=== PATIENT | female | born 1990 | race Caucasian/White ===

== ENCOUNTER → 2021-06-29 | Outpatient (CLI) | payer OTHER ==
--- NOTE | 2021-06-29 09:26 | Diagnostic Imaging Report ---
PROCEDURE: US Non-ob pelvis comp/trans. INDICATION: Secondary amenorrhea, possible miscarriage. TECHNIQUE: Multiple real time chris scale sonographic images were obtained of the pelvis transabdominally and endovaginally. CORRELATION STUDY: None FINDINGS: UTERUS: 7.3 x 3.3 x 3.8 cm. ENDOMETRIUM: 6 mm. Posterior to the endometrium is a small, anechoic region measuring 0.5 x 0.5 x 0.5 cm. Nonspecific. Possibility that this represents a gestational sac not excluded. No heart tones present. Cervical nabothian cysts present. RIGHT OVARY: 3.4 x 1.9 x 3.1 cm LEFT OVARY: 3.7 x 2.0 x 2.8 cm There is presence of multiple cysts and/or follicles of both ovaries. Blood flow is demonstrated to both ovaries. No definitive abnormal adnexal mass. Small amount of pelvic fluid posterior cul-de-sac. IMPRESSION: 1. Small fluid collection projecting posterior to the endometrium. This is nonspecific. Possibility of a small gestational sac not excluded. However, no pole or evidence for heart tones present. Correlation with serial beta hCG and short-term follow-up pelvic ultrasound imaging recommended. 2. Multiple small cysts and/or follicles of both ovaries. This can be associated with underlying polycystic ovarian syndrome. Dictated by: Dictated on workstation # [id number]
== END ==
LOC: RAD 08:00
PROVIDERS: ATTEND Obstetrics & Gynecology
DX: N91.1 Secondary amenorrhea (principal)
CPT/HCPCS: 76830; 76856

== ENCOUNTER 2021-07-06 09:00 | Day surgery (SDC) | payer OTHER ==
[2021-07-06] VITALS (10 sets, daily range): BP systolic 94–125; BP diastolic 55–92
[~2021-07-06] VITALS: Ht 167.7 cm; Wt 112.7 kg
[2021-07-06] MEDS ORDERED: LACTATED RINGERS 1,000 ML IV PRN (09:15)
[2021-07-06] MEDS ORDERED: fentaNYL INJ 100 MCG/2 ML AMP ONE (10:00)
[2021-07-06] MEDS ORDERED: MIDAZOLAM 2 MG/2 ML (VERSED) VIAL ONE (10:00)
[2021-07-06] MEDS ORDERED: ONDANSETRON 4 MG/2 ML (SDV) Z0FRAN ONE ×2 (10:06→10:17)
[2021-07-06] MEDS ORDERED: SCOPOLAMINE 1.5 MG (TRANSDERM-SCOP) PATCH ONE (10:06)
--- NOTE | 2021-07-06 10:06 | Progress Note-Pre Operative ---
Pre-Operative Progress Note H&P Reviewed The H&P was reviewed, patient examined and no changes noted. Date Seen by Provider: Jul 06, 2021 Time Seen by Provider: 10:00 Date H&P Reviewed: Jul 06, 2021 Time H&P Reviewed: 10:00 Pre-Operative Diagnosis: Incomplete ABHINAV Law DO Jul 06, 2021 10:06
[2021-07-06] MEDS ORDERED: FAMOTIDINE 20MG/2ML IV (PEPCID) ONE (10:07)
[2021-07-06] MEDS ORDERED: IBUP-1773 PO (10:08)
[2021-07-06] MEDS ORDERED: KETOROLAC 30 MG/ML VIAL IVP ONE (10:15)
[2021-07-06] MEDS ORDERED: SCOPOLAMINE 1.5 MG (TRANSDERM-SCOP) PATCH TD ONE (10:15)
[2021-07-06] MEDS ORDERED: D5 LR IV SOLUTION 1,000 ML IV SCH (10:15)
[2021-07-06] MEDS ORDERED: ONDANSETRON 4 MG/2 ML (SDV) Z0FRAN IVP ONE (10:15)
[2021-07-06] MEDS ORDERED: FAMOTIDINE 20MG/2ML IV (PEPCID) IVP ONE (10:15)
[2021-07-06] MEDS ORDERED: ONDANSETRON 4 MG/2 ML (SDV) Z0FRAN IVP PRN ×2 (10:15→11:00)
[2021-07-06] MEDS ORDERED: LIDOCAINE PF 2% 5 ML (XYLOCAINE) VIAL ONE (10:17)
[2021-07-06] MEDS ORDERED: proPOfol 200 MG/20 ML (DIPRIVAN) VIAL IV ONE (10:17)
[2021-07-06] MEDS ORDERED: KETOROLAC 30 MG/ML VIAL ONE (10:35)
[2021-07-06] MEDS ORDERED: HYDROmorphone 2 MG/ML VIAL (DILAUDID) IV ONE (11:00)
[2021-07-06] MEDS ORDERED: HYDROcodone/APAP 5 MG/325 MG (LORTAB) TAB PO ONE (11:45)
--- NOTE | 2021-07-06 13:51 | Anesthesia-General Post-Op ---
General Patient Condition Mental Status/LOC: Same as Preop Cardiovascular: Satisfactory Nausea/Vomiting: Absent Respiratory: Satisfactory Pain: Controlled Complications: Absent Post Op Complications Complications None Follow Up Care/Instructions Patient Instructions None needed. Anesthesia/Patient Condition Patient Condition Patient is doing well, no complaints, stable vital signs, no apparent adverse anesthesia problems. No complications reported per nursing. D/C home per [facility] [place] Criteria: Yes ALMA ROSA RABAGO CRNA Jul 06, 2021 13:51
--- NOTE | 2021-07-06 18:00 | OPERATIVE REPORT ---
DATE OF SERVICE: PREOPERATIVE DIAGNOSES: A 30-year-old female with incomplete . POSTOPERATIVE DIAGNOSIS: A 30-year-old female with incomplete . PROCEDURE: Suction D and C. SURGEON: Lele Parker DO ANESTHESIA: LMA general. ESTIMATED BLOOD LOSS: Minimal. URINE OUTPUT: 50 mL clear at the end of the procedure. FLUIDS: 800 mL lactated Ringer's solution. FINDINGS: Grossly normal-appearing external female genitalia with a small to scant amount of endometrial products of conception and tissue collected. SPECIMEN SENT: Products of conception. INDICATIONS FOR PROCEDURE: This 30-year-old female is a patient who was thought to have miscarried approximately 1 month ago; however, beta hCG level plateau and its fall and hovered around 50 for about the last 2 weeks. Repeat ultrasound showed intrauterine collapsed gestational sac with thickened endometrial tissue noted around the suspicious for retained products of conception. I discussed with the patient proceeding with D and C. Risks of procedure were discussed with the patient in detail and after all her questions were answered, consent was obtained, the patient was taken to the operating room. OPERATIVE REPORT IN DETAIL: Once in the operating room, general anesthesia was found to be adequate. She was placed in the dorsal lithotomy position, prepped and draped in normal sterile fashion. Timeout was performed. Weighted speculum was inserted to the patient's vagina. Bladder was emptied using straight catheterization. Right angle retractor was used to visualize the cervix. It was grasped at 12 o'clock position using a long Allis clamp. I then gently sound the uterine cavity, was found to be 7 cm. I selected a #7 rigid Richland curette and after dilating the cervix to allow placement of this, I placed a curette into the endometrial cavity. I attached the Richland suction device and applied suction to 70 mmHg, at which point I methodically cleared the endometrial cavity of all products of conception, endometrial tissue and debris. This was done on several passes and a gentle sharp curettage was performed thereafter. There was no bleeding noted at the end of the procedure. The patient tolerated the procedure well. All instruments were removed from the patient's vagina. She was taken to recovery area in stable condition. Lap and sponge counts were correct at the end of the procedure. Instrument counts correct as well. Job ID: [id number] DocumentID: [id number] Dictated Date: 07/06/2021 10:58:01 [employer] Date: 07/06/2021 17:59:43 Dictated By: DO NATALI MORALES
== END 2021-07-06 13:00 | disposition home or self-care (01) ==
LOC: SDC 09:00
PROVIDERS: ATTEND Obstetrics & Gynecology
DX: O03.4 Incomplete spontaneous abortion without complication (principal); Z79.899 Other long term (current) drug therapy; Z79.890 Hormone replacement therapy; E66.9 Obesity, unspecified; Z87.891 Personal history of nicotine dependence; Z87.42 Personal history of other diseases of the female genital tract
CPT/HCPCS: 36415; 86850; 86900; 86901; 87081

== ENCOUNTER → 2022-11-08 | Outpatient (CLI) | payer OTHER ==
[~2022-11-08] MED LIST: IBUP-1773 PO
--- NOTE | 2022-11-09 08:04 | Diagnostic Imaging Report ---
INDICATION: Supervision of normal . Anatomy scan. TECHNIQUE: Multiple real-time grayscale images were obtained over the gravid uterus. COMPARISON: None FINDINGS: A single live intrauterine gestation is visualized in transverse presentation. heart tones measure 155 bpm. The placenta is posterior and not low lying. The SANDRA is normal measuring 12.0 cm. The cervix is closed and measures 7.1 cm in length. The stomach, bladder, three-vessel cord, cord insertion, ventricles and brain, and kidneys are visualized and have a normal sonographic appearance. The four-chamber heart and spine are not well visualized due to position. Views of the adnexa are unremarkable. Biometrical measurements are as follows: Biparietal 4.55 cm, age 19 weeks 6 days. Head circumference 17.94 cm, age 20 weeks 3 days. Abdominal circumference 14.50 cm, age 19 weeks 6 days. Femur length 3.63 cm, age 21 weeks 4 days. Sonographic estimate age: 20 weeks 3 days. Sonographic estimated date of delivery: 03/25/2023. Estimated Weight: 361 gm (+/- 53 gm). LMP percentile: 83%. heart rate: 155 beats per minute. number: 1 of 1. IMPRESSION: 1. Single live intrauterine gestation measuring 20 weeks 3 days with estimated due date of 03/25/2023. These are within range with the clinical dates. 2. The four-chamber heart and spine are not well seen due to position. Otherwise, the anatomy is visualized and is unremarkable. Recommend continued followup as indicated. Dictated by: Dictated on workstation # [id number]
== END ==
LOC: RAD 15:01
PROVIDERS: ATTEND Nurse Practitioner Women's Health
DX: Z34.02 Encounter for supervision of normal first pregnancy, second trimester (principal); Z3A.20 20 weeks gestation of pregnancy
CPT/HCPCS: 76805

== ENCOUNTER 2023-01-27 20:03 | Outpatient (CLI) | payer OTHER ==
[~2023-01-27] VITALS: Ht 167.7 cm; Wt 121.2 kg
[2023-01-27 20:23] LABS: BILIRUBIN,URINE NEGATIVE (NEGATIVE); CLARITY,URINE CLEAR; COLOR,URINE YELLOW; GLUCOSE, URINE (UA) NEGATIVE (NEGATIVE); KETONES,URINE NEGATIVE (NEGATIVE); LEUKOCYTE ESTERASE ,URINE TRACE (NEGATIVE); NITRITE,URINE NEGATIVE (NEGATIVE); PH,URINE 6.5 (5-9); PROTEIN,URINE TRACE (NEGATIVE)
[2023-01-27 20:31] VITALS: BP 132/69
[2023-01-27 20:36] LABS: BACTERIA,URINE MODERATE /HPF; SQUAMOUS EPITHELIAL CELL,UR >50 /HPF
[2023-01-27] MEDS ORDERED: ASPI-999 PO (20:55)
[2023-01-27] MEDS ORDERED: LEVO25CA4 PO (20:55)
[2023-01-27] MEDS ORDERED: MAGN250C PO (20:55)
[2023-01-27] MEDS ORDERED: PREN-142 PO (20:55)
[2023-01-27 21:24] LABS: BASOPHILS % (AUTO) 0 % (0-10); EOSINOPHILS # (AUTO) 0.1 10^3/uL (0.0-0.3); EOSINOPHILS % (AUTO) 1 % (0-10); HEMATOCRIT 30 % (35-52); HEMOGLOBIN 9.6 g/dL (11.5-16.0); LYMPHOCYTES % (AUTO) 26 % (12-44); MEAN CORPUSCULAR HEMOGLOBIN 28 pg (25-34); MEAN CORPUSCULAR HGB CONC 32 g/dL (32-36); MEAN CORPUSCULAR VOLUME 87 fL (80-99); MEAN PLATELET VOLUME 9.7 fL (9.0-12.2); MONOCYTES # (AUTO) 0.8 10^3/uL (0.0-1.0); MONOCYTES % (AUTO) 7 % (0-12); NEUTROPHILS # (AUTO) 7.5 10^3/uL (1.8-7.8); NEUTROPHILS % (AUTO) 66 % (42-75); PLATELET COUNT 272 10^3/uL (130-400); WHITE BLOOD COUNT 11.5 10^3/uL (4.3-11.0)
[2023-01-27 21:45] LABS: ALBUMIN 2.9 GM/DL (3.2-4.5)
[2023-01-27 21:47] LABS: CALCIUM 8.5 MG/DL (8.5-10.1)
[2023-01-27 21:48] LABS: GLUCOSE 94 MG/DL (70-105); TOTAL PROTEIN 5.9 GM/DL (6.4-8.2)
[2023-01-27 21:49] LABS: CARBON DIOXIDE 21 MMOL/L (21-32)
[2023-01-27 21:50] LABS: BILIRUBIN,TOTAL < 0.1 MG/DL (0.1-1.0)
[2023-01-27 21:51] LABS: ALKALINE PHOSPHATASE 60 U/L (40-136); CREATININE SERUM 0.74 MG/DL (0.60-1.30); GFR ESTIMATED 110
[2023-01-27 21:53] LABS: BUN/CREATININE RATIO 7
[2023-01-27 21:54] LABS: ALANINE AMINOTRANSFERASE 10 U/L (0-55)
[2023-01-27 22:05] LABS: CHLORIDE 109 MMOL/L (98-107); POTASSIUM 3.8 MMOL/L (3.6-5.0); SODIUM 138 MMOL/L (135-145)
--- NOTE | 2023-01-27 22:08 | OB Triage Report ---
Standard Progress Note Progress Notes/Assess & Plan Date Seen by a Provider: January 27, 2023 Time Seen by a Provider: 22:02 Expected Date of Delivery: Mar 29, 2023 Gestational Age in Weeks: 31 Gestational Age in Days: 2 LMP/REKHA Comment: IUP@ 31w2d Progress/Assessment & Plan This 32yo presents to L&D @31w2d with c/o vision changes that have started over the last wk She denies any other symptoms (BUENO, n/v, epigastric pain) She was concerned because her father had a retinal detachment last month. she denies LOF, VB or CTXs BP 132/69 Repeat 102/68 FHT 135 Reactive TOCOs occasional PIH labs reviewed nml A/P IUP @ 31w2d Vision changes PIH labs wnl DC to home Keep next appt. PIH precautions Diagnosis/Problems Diagnosis/Problems (1) 31 weeks gestation of Assessment & Plan: IUP @ 31w2d DC to home Keep next appt (2) Vision changes Assessment & Plan: BP stable PIH labs nml DC to home. f/u with her Ophthalmalogist SHUKRI CRUMP DO January 27, 2023 22:08
== END 2023-01-27 22:20 | disposition home or self-care (01) ==
LOC: LDRP 20:03 → WSo 20:03
PROVIDERS: ATTEND Obstetrics & Gynecology
DX: O26.893 Other specified pregnancy related conditions, third trimester (principal); H53.9 Unspecified visual disturbance; Z3A.31 31 weeks gestation of pregnancy
CPT/HCPCS: 36415; 80053; 81000; 82570; 84156; 85025; 87088; 99213

== ENCOUNTER 2023-04-01 19:01 | Inpatient (IN) | payer OTHER ==
[~2023-04-01] VITALS: Ht 167.7 cm; Wt 126.7 kg
[~2023-04-01 19:01] MED LIST changes: +ASPI-999 PO; +LEVO25CA4 PO; +MAGN250C PO; +PREN-142 PO
[2023-04-01 19:26] VITALS: BP 131/73
[2023-04-01] MEDS ORDERED: HYDROmorphone 2 MG/ML VIAL (DILAUDID) IV NR (19:30)
[2023-04-01] MEDS ORDERED: LIDOCAINE/EPI 2% 1:200,00 (XYLOCAINE) 20 ML VIAL INJ PRN (19:30)
[2023-04-01] MEDS ORDERED: NS IV 500 ML 500 ML IV ONE (19:30)
[2023-04-01] MEDS ORDERED: D5 LR 1,000 ML IV SOLN 1,000 ML IV ONE (19:31)
[2023-04-01] MEDS ORDERED: NS IV 500 ML 500 ML ONE (19:31)
[2023-04-01] MEDS: D5 LR 1,000 ML IV SOLN 1,000 ML IV SCH (19:46)
[2023-04-01 20:00] VITALS: BP 131/73
[2023-04-01 20:28] LABS: BASOPHILS % (AUTO) 0 % (0-10); EOSINOPHILS # (AUTO) 0.1 10^3/uL (0.0-0.3); EOSINOPHILS % (AUTO) 0 % (0-10); HEMATOCRIT 34 % (35-52); HEMOGLOBIN 11.2 g/dL (11.5-16.0); LYMPHOCYTES # (AUTO) 2.7 10^3/uL (1.0-4.0); LYMPHOCYTES % (AUTO) 23 % (12-44); MEAN CORPUSCULAR HEMOGLOBIN 28 pg (25-34); MEAN CORPUSCULAR HGB CONC 33 g/dL (32-36); MEAN CORPUSCULAR VOLUME 84 fL (80-99); MEAN PLATELET VOLUME 11.2 fL (9.0-12.2); MONOCYTES # (AUTO) 0.7 10^3/uL (0.0-1.0); MONOCYTES % (AUTO) 6 % (0-12); NEUTROPHILS # (AUTO) 8.4 10^3/uL (1.8-7.8); NEUTROPHILS % (AUTO) 70 % (42-75); PLATELET COUNT 292 10^3/uL (130-400)
[2023-04-01] MEDS ORDERED: diphenhydrAMINE 25 MG TABLET PO ONE ×2 (21:00→21:03)
[2023-04-01 21:01] LABS: BILIRUBIN,URINE NEGATIVE (NEGATIVE); CLARITY,URINE CLEAR; COLOR,URINE YELLOW; GLUCOSE, URINE (UA) NEGATIVE (NEGATIVE); KETONES,URINE NEGATIVE (NEGATIVE); LEUKOCYTE ESTERASE ,URINE NEGATIVE (NEGATIVE); NITRITE,URINE NEGATIVE (NEGATIVE); PROTEIN,URINE NEGATIVE (NEGATIVE)
[2023-04-01 21:14] VITALS: BP 106/70
[2023-04-01 21:20] LABS: BACTERIA,URINE MODERATE /HPF; WBC,URINE 0-2 /HPF
[2023-04-01] MEDS ORDERED: FAMOTIDINE INJ 20MG/2ML VIAL IVP ONE (21:45)
[2023-04-01] MEDS ORDERED: FAMOTIDINE INJ 20MG/2ML VIAL ONE (21:48)
--- NOTE | 2023-04-01 21:54 | History & Physical-OB ---
OB - Chief Complaint & HPI Date/Time Date of Admission: Date of Admission: Apr 01, 2023 at 19:01 Date seen by a Provider: Apr 01, 2023 Time Seen by a Provider: 21:40 Chief Complaint/History OB-Reason for Admission/Chief: Induction of Labor Hx : 2 Hx Para: 0 Expected Date of Delivery: Mar 24, 2023 Gestational Age in Weeks: 40 Gestational Age in Days: 3 Indication for induction: post dates Admission Nurse Assessment Rev: Yes History of Labs A pos Antibody neg RI RPR NR HBsAg NR HIV NR GC neg GBS neg Allergies and Home Medications Allergies Coded Allergies: No Known Drug Allergies (Unverified , 07/05/21) Patient Home Medication List Home Medication List Reviewed: Yes Aspirin (Aspirin) 81 Mg Tab.chew, 81 MG PO, (Reported) Entered as Reported by: FREEMAN BARON on 01/27/232054 Levothyroxine Sodium (Levothyroxine) 25 Mcg Capsule, 25 MCG PO, (Reported) Entered as Reported by: RFEEMAN BARON on 01/27/232054 Magnesium Citrate and Oxide (Magnesium) 250 Mg Capsule, 250 MG PO, (Reported) Entered as Reported by: FREEMAN BARON on 01/27/232054 Vit No.124/Iron/FA ( Vitamin Tablet) 27 Mg Iron-800 Mcg Tablet, 1 EACH PO, (Reported) Entered as Reported by: FREEMAN BARON on 01/27/232054 OB - History Hx of Present Care: Yes Ultrasounds: Normal mid trimester US Obstetrical Complications: None Medical Complications: None Patient Past Medical History nc Social History/Family History 2nd Hand Smoke Exposure: No Immunizations First/Initial COVID19 Vaccine: yes Second COVID19 Vaccination: yes OB - Admission Exam Physical Exam Vitals: Vital Signs 04/01/23 20:00 Temp 36.7 Pulse 90 Resp 20 Pulse Ox 96 O2 Delivery Room Air HEENT: NCAT Heart: Rhythm Normal Lungs: Clear Abdomen: Gravid Extremities: Normal Reflexes: Normal Cervical Dilatation: 2cm Effacement: 75% Station: -1 Membranes: Intact Heart Rate: 130's Accelerations: Accelerations Present Decelerations: No Decelerations Short Term Variability: Present Fdc Variability: Average (6-25) Contractions on Admission: 6-10 Minutes Apart Intensity: Mild Murguia Scoring Tool (Modified) Dilation (cm): 1-2cm (1) Effacement (%): 51-79% (2) Descent/Station: -1,0 (2) Cervix Consistency: Soft (2) Cervix Position: Anterior (2) Murguia Score: 8 Labs Laboratory Tests Test 04/01/23 19:45 04/01/23 20:50 Range/Units White Blood Count 12.0 H 4.3-11.0 10^3/uL Red Blood Count 4.02 3.80-5.11 10^6/uL Hemoglobin 11.2 L 11.5-16.0 g/dL Hematocrit 34 L 35-52 % Mean Corpuscular Volume 84 80-99 fL Mean Corpuscular Hemoglobin 28 25-34 pg Mean Corpuscular Hemoglobin Concent 33 32-36 g/dL Red Cell Distribution Width 14.7 H 10.0-14.5 % Platelet Count 292 130-400 10^3/uL Mean Platelet Volume 11.2 9.0-12.2 fL Immature Granulocyte % (Auto) 1 % Neutrophils (%) (Auto) 70 42-75 % Lymphocytes (%) (Auto) 23 12-44 % Monocytes (%) (Auto) 6 0-12 % Eosinophils (%) (Auto) 0 0-10 % Basophils (%) (Auto) 0 0-10 % Neutrophils # (Auto) 8.4 H 1.8-7.8 10^3/uL Lymphocytes # (Auto) 2.7 1.0-4.0 10^3/uL Monocytes # (Auto) 0.7 0.0-1.0 10^3/uL Eosinophils # (Auto) 0.1 0.0-0.3 10^3/uL Basophils # (Auto) 0.0 0.0-0.1 10^3/uL Immature Granulocyte # (Auto) 0.1 0.0-0.1 10^3/uL Syphilis Total Antibody Negative Negative Urine Color YELLOW Urine Clarity CLEAR Urine pH 6.0 5-9 Urine Specific [place] 1.020 1.016-1.022 Urine Protein NEGATIVE NEGATIVE Urine Glucose (UA) NEGATIVE NEGATIVE Urine Ketones NEGATIVE NEGATIVE Urine Nitrite NEGATIVE NEGATIVE Urine Bilirubin NEGATIVE NEGATIVE Urine Urobilinogen 0.2 < = 1.0 MG/DL Urine Leukocyte Esterase NEGATIVE NEGATIVE Urine RBC (Auto) TRACE-I H NEGATIVE Urine RBC 2-5 H /HPF Urine WBC 0-2 /HPF Urine Squamous Epithelial Cells 5-10 /HPF Urine Crystals NONE /LPF Urine Bacteria MODERATE H /HPF Urine Casts NONE /LPF Urine Mucus SMALL H /LPF Urine Culture Indicated NO OB - Assessment/Plan/Diagnosis Assessment Assessment: induction of labor Admission Dx 32 y o @ 40 weeks IOL- postdates GBS neg Admission Status: Inpatient Order (span 2 midnights) Reason for Inpatient Admission: IOL at 40 weeks Plan Plan: Induction Induction Method: per Misoprostol Protocol ABHINAV HERNANDES DO Apr 01, 2023 21:54
[2023-04-02] VITALS (81 sets, daily range): BP systolic 70–159; BP diastolic 38–96
[2023-04-02] MEDS: D5 LR 1,000 ML IV SOLN 1,000 ML IV SCH ×2 (02:53→17:30)
[2023-04-02] MEDS ORDERED: OXYTOCIN PRE-MIX DRIP 500 ML IV ONE ×3 (07:59→21:15)
[2023-04-02] MEDS ORDERED: OXYTOCIN PRE-MIX DRIP 500 ML IV SCH (08:00)
[2023-04-02] MEDS: LACTATED RINGERS 1,000 ML IV SCH ×2 (08:14→19:28)
[2023-04-02] MEDS ORDERED: fentaNYL 2 mcg/ml BUPIVA 0.125 100 ML ONE (08:48)
[2023-04-02] MEDS ORDERED: fentaNYL INJECTION 100 MCG/2 ML VIAL ONE ×2 (08:57→20:03)
[2023-04-02] MEDS ORDERED: LACTATED RINGERS 1,000 ML IV ONE (09:30)
[2023-04-02] MEDS: ONDANSETRON 4 MG/2 ML (SDV) Z0FRAN IV PRN ×2 (09:32→13:05)
[2023-04-02] MEDS ORDERED: ONDANSETRON 4 MG/2 ML (SDV) Z0FRAN ONE ×2 (09:32→21:15)
[2023-04-02] MEDS ORDERED: diphenhydrAMINE INJ 50 MG/ML VIAL IV PRN (10:00)
[2023-04-02] MEDS ORDERED: NALOXONE 0.4 MG/ML 1 ML (NARCAN) VIAL IV PRN ×3 (10:00→20:45)
[2023-04-02] MEDS ORDERED: METOCLOPRAMIDE INJ 10 MG/2 ML (REGLAN) IV PRN (10:00)
[2023-04-02] MEDS ORDERED: fentaNYL 2 mcg/ml BUPIVA 0.125 100 ML EPI SCH (10:00)
[2023-04-02] MEDS ORDERED: CITRIC ACID/SODIUM CITRATE ORAL SOLN 30 ML PO ONE (19:00)
[2023-04-02] MEDS ORDERED: METOCLOPRAMIDE INJ 10 MG/2 ML (REGLAN) IV ONE (19:00)
[2023-04-02] MEDS ORDERED: FAMOTIDINE INJ 20MG/2ML VIAL IV ONE (19:00)
[2023-04-02] MEDS ORDERED: ceFAZolin INJECTION 2,000 MG in NS (IVPB) 50 ML 50 ML IV ONE (19:00)
[2023-04-02] MEDS ORDERED: LACTATED RINGERS 1,000 ML IV PRN (19:00)
[2023-04-02] MEDS ORDERED: KETOROLAC 30 MG/ML VIAL ONE (20:12)
[2023-04-02] MEDS ORDERED: BUPIVACAINE 0.5% 30 ML VIAL ONE (20:31)
[2023-04-02] MEDS ORDERED: LIDOCAINE PF 2% 5 ML (XYLOCAINE) VIAL ONE (20:31)
[2023-04-02] MEDS ORDERED: PHENYLEPHRINE 100 MCG/ML 10 ML (ANESTHESIA) SYR ONE (20:32)
--- NOTE | 2023-04-02 20:35 | Progress Note ---
Standard Progress Note Progress Notes/Assess & Plan Date Seen by a Provider: Apr 02, 2023 Time Seen by a Provider: 20:15 Progress/Assessment & Plan Patient admitted for IOL due to post dates, misoprostol used overnight followed by AROM and pitocin augmentation. FSE placed. Recurrent variable decels occurred with is little to no progression she made it to 4 cm and stayed there despite augmentation to 16 mu pitocin at which point decels began and pitocin stopped. Discussed with patient proceeding with PCS risk reviewed, all questions answered. ABHINAV HERNANDES DO Apr 02, 2023 20:35
[2023-04-02] MEDS ORDERED: KETAMINE 50 MG/5 ML SYRINGE ONE (20:37)
[2023-04-02] MEDS ORDERED: Tetanus/Diphtheria/Pertussis (Acell) ADULT Vaccine 0.5 ML IM SCH (20:45)
[2023-04-02] MEDS ORDERED: ONDANSETRON 4 MG/2 ML (SDV) Z0FRAN IVP PRN (20:45)
[2023-04-02] MEDS ORDERED: MEASLES,MUMPS,RUBELLA 1 EA INJ SC SCH (20:45)
[2023-04-02] MEDS: KETOROLAC 30 MG/ML VIAL IV SCH (21:00)
[2023-04-02] MEDS: OXYTOCIN PRE-MIX DRIP 500 ML IV SCH (21:49)
[2023-04-02] MEDS: CATHETER FLUSH 10 ML SYR IV SCH (22:00)
[2023-04-02] MEDS: HYDROcodone/ACETAMINOPHEN 5 MG/325 MG TABLET PO PRN (23:52)
--- NOTE | 2023-04-03 00:03 | OPERATIVE REPORT ---
PREOPERATIVE DIAGNOSES: 1. A 32-year-old G2, P0 at 40 weeks and 2 days gestation. 2. intolerance of labor. 3. Failure to progress. POSTOPERATIVE DIAGNOSES: 1. A 32-year-old G2, P0 at 40 weeks and 2 days gestation. 2. intolerance of labor. 3. Failure to progress. PROCEDURE: Primary low transverse section. SURGEON: Lele Hernandes DO. ANESTHESIA: Epidural, which was bolused. ESTIMATED BLOOD LOSS: 500 mL URINE OUTPUT: 50 mL, clear at the end of procedure. FLUIDS: 1500 mL lactated Ringer's solution. FINDINGS: A live male weighing 8 pounds 3 ounces, Apgars of 8 and 9. Grossly normal appearing uterus, bilateral fallopian tubes and ovaries. SPECIMEN SENT: Placenta. INDICATIONS FOR PROCEDURE: This 32-year-old female is the patient who had sought care in my office. It was uncomplicated with the exception for postdates and obesity. The patient was induced after 40 weeks. She was given Cytotec overnight. You can see my preoperative note for complete details pertaining to the patient's labor progress in detail. Due to indications indicated in my preoperative note, we discussed proceeding with . Risks of procedure discussed with the patient in detail including risk of bleeding, infection, damage to surrounding structures including but not limited to bowel, bladder, ureter, kidneys, possible need for operation, postoperative complications that may occur, recovery timeframe, risk from anesthesia and even . After everything was discussed with the patient in detail and all of his questions were answered with the family present, consent was obtained. The patient was taken to the operating room. OPERATIVE REPORT IN DETAIL: Once in the operating room, epidural analgesia was bolused and found to be adequate, she was placed in the supine position with leftward tilt, prepped and draped in normal sterile fashion. Timeout was performed. Anesthesia was tested. I then made a Pfannenstiel skin incision with a knife and carried underlying fascia using Bovie cautery. The fascial incision extended laterally using Bovie cautery. The superior aspect of fascial incision was then grasped with Irina clamps, tented up and dissected off the underlying rectus muscles. The inferior aspect of the fascial incision was then grasped with Irina clamps, tented up and dissected off the underlying rectus muscles. Rectus muscles were dissected down the midline sharply, which exposed the peritoneum, which entered bluntly using blunt traction. Regino ring retractor was placed in the peritoneal incision, which offers excellent lateral sidewall retraction. I identified the lower uterine segment, found to be thinned out. I did make the low transverse incision to the vesicouterine peritoneum and bluntly dissected off the lower uterine segment, creating a bladder flap and then proceeded with my myotomy until membranes were visualized, at which point, I extended the uterine incision laterally and superiorly using bandage scissors. Amniotomy was noted in the process of doing this. It is still clear. The was found in vertex presentation. With gentle fundal pressure, the 's head was elevated up the incision where it was delivered through the incision, the nares and oropharynx were bulb suctioned. Anterior and posterior shoulders were delivered. The was brought to the operative field where cord was doubly clamped and cut and the infant was handed off to waiting nurses in attendance. Cord blood was collected. Three-vessel cord intact placenta was delivered spontaneously thereafter. IV Pitocin is initiated to facilitate uterine contraction. Uterine fundus confirmed with bimanual massage. The uterus was then exteriorized and cleared of all endometrial clots and debris. I then proceeded with closing the uterine incision using 0 Vicryl suture in a running locked fashion. Second layer of imbricating 0 Monocryl was placed. Excellent hemostasis was noted after doing this. I then placed the uterus back in the pelvis and copiously irrigated the pelvis using normal saline. Once again, there was no active bleeding noted from any of my dissection planes. I placed Interceed antiadhesive over my low transverse incision. I removed the Regino ring retractor and then proceeded with closing the peritoneum using 3-0 Vicryl suture in a running fashion. Rectus muscles were reapproximated using 3-0 Vicryl suture in interrupted fashion. The fascia was reapproximated using 0 Vicryl suture in a running fashion. Subcutaneous tissue was reapproximated using 3-0 plain interrupted subcutaneous stitch and skin reapproximated with 4-0 Monocryl running subcuticular. Dermabond was applied to incision, sterile dressing with adhesive white tape. The patient tolerated the procedure well and sent to recovery area in stable condition. Lap and sponge counts were correct at the end of the procedure. Instrument counts correct as well. Two grams of Ancef given preoperatively for infection prophylaxis. Job ID: [id number] DocumentID: [id number] Dictated Date: 04/02/2023 21:15:10 Weaving Inspector Date: 04/03/2023 00:01:00 Dictated By: LELE HERNANDES DO
[2023-04-03] MEDS: HYDROcodone/ACETAMINOPHEN 5 MG/325 MG TABLET PO PRN ×4 (00:27→21:14)
[2023-04-03] MEDS: OXYTOCIN PRE-MIX DRIP 500 ML IV SCH (01:26)
[2023-04-03] MEDS: DOCUSATE SODIUM 100 MG CAPSULE PO SCH ×3 (02:07→21:14)
[2023-04-03] MEDS: KETOROLAC 30 MG/ML VIAL IV SCH ×3 (02:48→15:23)
[2023-04-03 04:15] VITALS: BP 118/67
[2023-04-03] MEDS: CATHETER FLUSH 10 ML SYR IV SCH ×2 (06:00→09:12)
[2023-04-03 06:11] LABS: BASOPHILS # (AUTO) 0.1 10^3/uL (0.0-0.1); BASOPHILS % (AUTO) 0 % (0-10); EOSINOPHILS % (AUTO) 0 % (0-10); HEMATOCRIT 29 % (35-52); HEMOGLOBIN 9.3 g/dL (11.5-16.0); LYMPHOCYTES # (AUTO) 2.2 10^3/uL (1.0-4.0); LYMPHOCYTES % (AUTO) 12 % (12-44); MEAN CORPUSCULAR HEMOGLOBIN 27 pg (25-34); MEAN CORPUSCULAR HGB CONC 32 g/dL (32-36); MEAN CORPUSCULAR VOLUME 84 fL (80-99); MEAN PLATELET VOLUME 10.3 fL (9.0-12.2); MONOCYTES # (AUTO) 1.4 10^3/uL (0.0-1.0); MONOCYTES % (AUTO) 8 % (0-12); NEUTROPHILS # (AUTO) 14.5 10^3/uL (1.8-7.8); NEUTROPHILS % (AUTO) 79 % (42-75); PLATELET COUNT 221 10^3/uL (130-400); WHITE BLOOD COUNT 18.2 10^3/uL (4.3-11.0)
[2023-04-03 06:28] LABS: LYMPHOCYTES % (MANUAL) 15 %; MONOCYTES % (MANUAL) 5 %; NEUTROPHILS % (MANUAL) 80 %
--- NOTE | 2023-04-03 07:32 | Postpartum Progress Note ---
Note Note Day # 1 Subjective: Patient is without complaints. Ambulating, voiding. Tolerating a regular diet without nausea or vomiting. Normal lochia. Pain is well controlled with oral pain medications. [] Objective: Physical Exam: General - Alert and oriented, no apparent distress Abdomen - Soft, appropriately tender to palpation, non-distended, fundus firm at umbilicus Extremities - no edema, negative Pippa's bilaterally Incision- c/d/i Assessment: POD 1 PLTCS Acute blood loss anemia Plan: Routine care. Encourage breast feeding. Encourage ambulation. Ferrous sulfate supplementation. Plan for discharge tomorrow Vitals - Labs Vital Signs - I&O Vital Signs Date Time Temp Pulse Resp B/P (MAP) Pulse Ox O2 Delivery O2 Flow Rate FiO2 04/03/23 05:25 Room Air 04/03/23 04:15 36.4 83 18 118/67 (84) 97 Room Air 04/02/23 23:50 36.8 77 16 108/67 (81) 98 Room Air 04/02/23 22:48 36.2 79 16 111/73 (86) 98 Room Air 04/02/23 22:18 36.0 12 106/63 (77) 98 Room Air 04/02/23 22:18 Room Air 04/02/23 22:03 35.8 12 101/70 (80) 99 Room Air 04/02/23 22:03 Room Air 04/02/23 21:48 Room Air 04/02/23 21:48 35.7 12 121/66 (84) 99 Room Air 04/02/23 21:33 Room Air 04/02/23 21:33 36.2 14 137/96 (110) 99 Room Air 04/02/23 21:18 Room Air 04/02/23 21:18 36.8 17 143/54 (83) 100 Room Air 04/02/23 20:22 90 18 125/66 (85) Non Rebreather 04/02/23 20:16 77 18 133/70 (91) 94 Non Rebreather 04/02/23 20:13 90 18 109/57 (74) 100 Room Air 04/02/23 20:12 101 18 73/38 (50) 100 Room Air 04/02/23 20:11 101 18 92/55 (67) 100 Room Air 04/02/23 20:10 101 18 97/53 (68) 100 Room Air 04/02/23 20:08 86 18 129/70 (89) 100 Room Air 04/02/23 19:55 82 18 144/75 (98) 100 Room Air 04/02/23 19:40 84 18 150/72 (98) 97 Room Air 04/02/23 19:25 36.4 78 18 141/89 (106) 99 Room Air 04/02/23 19:05 75 18 124/60 (81) Room Air 04/02/23 19:00 80 18 149/86 (107) Room Air 04/02/23 18:21 79 99 Room Air 04/02/23 18:08 80 141/89 (106) 04/02/23 18:06 80 100 Room Air 04/02/23 17:54 81 142/87 (105) 04/02/23 17:52 87 100 Room Air 04/02/23 17:37 87 135/85 (102) 100 Room Air 04/02/23 17:29 36.1 85 18 141/94 (110) 91 Room Air 04/02/23 17:25 70 89/55 (66) 04/02/23 17:22 68 99 Room Air 04/02/23 17:06 64 100 Room Air 04/02/23 16:54 66 104/53 (70) 04/02/23 16:47 85 100 Room Air 04/02/23 16:42 65 100 Room Air 04/02/23 16:38 82 121/72 (88) 99 Room Air 04/02/23 16:32 71 88 Room Air 04/02/23 16:31 83 94 Room Air 04/02/23 16:27 82 100 Room Air 04/02/23 16:24 77 93 Room Air 04/02/23 16:22 36.0 77 18 128/73 (91) 96 Room Air 04/02/23 16:17 75 96 Room Air 04/02/23 16:16 74 92 Room Air 04/02/23 16:13 69 97 Room Air 04/02/23 16:08 77 130/79 (96) 98 Room Air 04/02/23 16:03 70 97 Room Air 04/02/23 15:58 73 97 Room Air 04/02/23 15:53 77 113/64 (80) 96 Room Air 04/02/23 15:47 87 97 Room Air 8 15:43 77 98 Room Air 04/02/23 15:37 85 124/81 (95) 99 Room Air 04/02/23 15:33 84 99 Room Air 8 15:27 83 98 Room Air 82 15:27 82 97 Room Air 8 15:25 81 131/79 (96) 04/02/23 15:22 84 97 Room Air 04/02/23 15:12 73 96 Room Air 04/02/23 15:07 77 133/80 (97) 99 Room Air 8 15:02 88 99 Room Air 04/02/23 14:57 78 98 Room Air 04/02/23 14:52 74 124/78 (93) 98 Room Air 04/02/23 14:47 81 98 Room Air 04/02/23 14:42 36.4 79 98 Room Air 04/02/23 14:38 77 18 116/73 (87) 100 Room Air 04/02/23 14:32 78 99 Room Air 04/02/23 14:27 81 98 Room Air 04/02/23 14:23 83 116/71 (86) 98 Room Air 04/02/23 14:17 71 98 Room Air 04/02/23 14:12 67 99 Room Air 04/02/23 14:09 67 122/67 (85) 98 Room Air 04/02/23 14:02 64 98 Room Air 04/02/23 13:57 71 99 Room Air 04/02/23 13:53 70 18 122/67 (85) 98 Room Air 04/02/23 13:47 71 98 Room Air 04/02/23 13:43 68 99 Room Air 04/02/23 13:38 70 121/65 (83) 04/02/23 13:36 70 100 Room Air 04/02/23 13:33 67 98 Room Air 04/02/23 13:27 69 100 Room Air 8 13:24 78 117/67 (84) 04/02/23 13:22 73 100 Room Air 82 13:18 76 98 Room Air 04/02/23 13:12 88 97 Room Air 04/02/23 13:08 71 98/59 (72) 96 Room Air 04/02/23 13:06 76 93 Room Air 8 13:03 82 96 Room Air 8 12:57 94 96/64 (75) 98 Room Air 82 12:53 80 18 127/76 (93) 98 Room Air 8 12:50 122 99 Room Air 82 12:47 87 99 Room Air 82 12:42 88 100 Room Air 82 12:39 81 138/80 (99) 04/02/23 12:37 79 99 Room Air 8 12:32 83 98 Room Air 82 12:27 80 99 Room Air 82 12:22 78 130/79 (96) 99 Room Air 82 12:17 83 99 Room Air 8 12:12 81 98 Room Air 8 12:08 76 18 123/76 (92) 99 Room Air 04/02/23 12:02 80 96 Room Air 04/02/23 11:57 78 99 Room Air 04/02/23 11:53 75 132/81 (98) 99 Room Air 04/02/23 11:47 82 100 Room Air 04/02/23 11:42 83 100 Room Air 04/02/23 11:38 86 122/79 (93) 100 Room Air 04/02/23 11:32 75 100 Room Air 04/02/23 11:27 79 100 Room Air 2 11:23 76 121/64 (83) 100 Room Air 04/02/23 11:17 79 100 Room Air 04/02/23 11:12 78 100 Room Air 04/02/23 11:08 36.0 98 18 123/72 (89) 98 Room Air 82 11:02 72 99 Room Air 82 10:56 70 97 Room Air 8223 10:52 71 98/54 (69) 97 Room Air 82 10:42 76 96 Room Air 8223 10:37 77 103/61 (75) 97 Room Air 82/23 10:32 76 97 Room Air 8/2/23 10:27 76 98 Room Air 8/2/23 10:23 73 18 104/56 (72) 98 Room Air 8223 10:17 74 95 Room Air 8/2/23 10:12 94 96 Room Air 8/2/23 10:11 87 94 Room Air 04/02/23 10:05 95 101/60 (74) 95 Room Air 04/02/23 10:02 86 94 Room Air 04/02/23 09:59 84 108/56 (73) 94 Room Air 04/02/23 09:56 75 116/69 (85) 94 Room Air 04/02/23 09:53 88 18 106/61 (76) 95 Room Air 04/02/23 09:50 91 101/61 (74) 94 Room Air 04/02/23 09:46 96 113/66 (82) 96 Room Air 04/02/23 09:43 88 105/63 (77) 94 Room Air 04/02/23 09:40 92 112/62 (79) 96 Room Air 04/02/23 09:39 107 110/64 (79) 04/02/23 09:37 85 115/67 (83) 04/02/23 09:35 83 18 114/60 (78) 97 Room Air 04/02/23 09:31 65 159/83 (108) 99 Room Air 04/02/23 09:30 63 70/42 (51) 04/02/23 09:26 76 100 Room Air 04/02/23 09:23 84 104/58 (73) 04/02/23 09:20 83 18 116/73 (87) 100 Room Air 04/02/23 09:17 79 100 Room Air 04/02/23 09:13 78 125/77 (93) 100 Room Air 04/02/23 09:08 75 137/80 (99) 100 Room Air 04/02/23 09:00 77 99 Room Air 04/02/23 08:55 74 128/77 (94) 100 Room Air 04/02/23 08:50 69 100 Room Air 04/02/23 08:45 77 100 Room Air 04/02/23 08:40 79 119/74 (89) 100 Room Air 04/02/23 08:35 77 100 Room Air 04/02/23 08:30 76 99 Room Air 04/02/23 08:25 75 18 117/73 (88) 99 Room Air 04/02/23 08:20 70 100 Room Air 04/02/23 08:14 80 100 Room Air 04/02/23 08:10 87 18 120/78 (92) 95 Room Air I & O 04/03/23 07:00 Intake Total 4100 ml Output Total 650 ml Balance 3450 ml Labs Laboratory Tests 04/03/23 06:02: White Blood Count 18.2H, Red Blood Count 3.42L, Hemoglobin 9.3L, Hematocrit 29L, Mean Corpuscular Volume 84, Mean Corpuscular Hemoglobin 27, Mean Corpuscular Hemoglobin Concent 32, Red Cell Distribution Width 14.8H, Platelet Count 221, Mean Platelet Volume 10.3, Immature Granulocyte % (Auto) 1, Neutrophils (%) (Auto) 79H, Lymphocytes (%) (Auto) 12, Monocytes (%) (Auto) 8, Eosinophils (%) (Auto) 0, Basophils (%) (Auto) 0, Neutrophils # (Auto) 14.5H, Lymphocytes # (Auto) 2.2, Monocytes # (Auto) 1.4H, Eosinophils # (Auto) 0.0, Basophils # (Auto) 0.1, Immature Granulocyte # (Auto) 0.1, Neutrophils % (Manual) 80, Lymphocytes % (Manual) 15, Monocytes % (Manual) 5 ABHINAV HERNANDES DO Apr 03, 2023 07:31
--- NOTE | 2023-04-03 07:33 | Discharge Inst-Women's Service ---
Discharge Inst-Women's Serv Depart Medication/Instructions New, Converted or Re-Newed RX: Transmitted to Pharmacy Final Diagnosis POD 2 PLTCS Problems Reviewed?: Yes Consults/Follow Up Additional Follow Up: Yes Orders/Referrals Dr. Parker in 7-10 days and in 6 weeks Activity Activity: Activity as Tolerated Driving Instructions: No Driving for 1 Week NO SMOKING: NO SMOKING Nothing Inside Vagina: No Douching, No [place], No Tampons Diet Discharge Diet: No Restrictions Symptoms to Report to : Bleeding Excessive, Pain Increased, Fever Over 101 Degrees F, Vaginal Bleeding Increase, Questions/Concerns For Any Problems or Questions: Contact Your Physician Skin/Wound Care Infection Signs and Symptoms: Increased Redness, Foul Odor of Wound, Increased Drainage, Skin Itchy or Has a Rash, Increased Swelling, Temperature Above 101 F Operative Area Clean and Dry: Keep Incision Clean/Dry Stitches/[place]/Dermabond: Dermabond, Care of Stitches Bathing Instructions: ABHINAV Heath DO Apr 03, 2023 07:33
[2023-04-03] MEDS ORDERED: DOCU100C37 PO (07:34)
[2023-04-03] MEDS ORDERED: ACHD5005 PO (07:34)
[2023-04-03] MEDS ORDERED: IBUP-844 PO (07:34)
[2023-04-03 09:00] VITALS: BP 113/76
[2023-04-03 16:00] VITALS: BP 116/63
[2023-04-03] MEDS ORDERED: HYDROmorphone 2 MG/ML VIAL (DILAUDID) IV PRN (18:15)
[2023-04-03 21:14] VITALS: BP 96/55
[2023-04-03] MEDS: IBUPROFEN 600 MG (MOTRIN) TAB PO SCH (21:14)
[2023-04-04] MEDS: IBUPROFEN 600 MG (MOTRIN) TAB PO SCH ×2 (02:17→08:42)
[2023-04-04 03:04] VITALS: BP 127/69
[2023-04-04] MEDS: HYDROcodone/ACETAMINOPHEN 5 MG/325 MG TABLET PO PRN ×2 (03:05→10:14)
[2023-04-04 08:00] VITALS: BP 118/77
--- NOTE | 2023-04-04 08:04 | Postpartum Progress Note ---
Note Note Day # 2 Subjective: Patient is without complaints. Ambulating, voiding. Tolerating a regular diet without nausea or vomiting. Normal lochia. Pain is well controlled with oral pain medications. Objective: Physical Exam: General - Alert and oriented, no apparent distress Abdomen - Soft, appropriately tender to palpation, non-distended, fundus firm at umbilicus Extremities - no edema, negative Pippa's bilaterally Incision- c/d/i Assessment: POD 2 PLTCS Acute blood loss anemia Plan: Routine care. Encourage breast feeding. Encourage ambulation. Ferrous sulfate supplementation. Plan for discharge today Vitals - Labs Vital Signs - I&O Vital Signs Date Time Temp Pulse Resp B/P (MAP) Pulse Ox O2 Delivery O2 Flow Rate FiO2 04/04/23 03:04 35.8 69 18 127/69 (88) 98 Room Air 04/03/23 21:14 36.1 74 18 96/55 (69) 97 Room Air 04/03/23 16:00 36.9 85 17 116/63 (80) 97 Room Air 04/03/23 12:00 36.8 83 18 Room Air 04/03/23 09:00 36.4 82 18 113/76 (88) 97 Room Air I & O 04/04/23 07:00 Intake Total 1450 ml Output Total 2400 ml Balance -950 ml ABHINAV HERNANDES DO Apr 04, 2023 08:04
[2023-04-04] MEDS: DOCUSATE SODIUM 100 MG CAPSULE PO SCH (08:40)
[2023-04-04 11:45] VITALS: BP 114/78
--- NOTE | 2023-04-04 13:27 | Anesthesia-Regional Post-Op ---
Regional Patient Condition Mental Status: Alert, Oriented x3 Circulation: Same as Pre-Op Headache: Absent Sensation: Full Recovery Motor Block: Absent Post Op Complications Complications None Follow Up Care/Instructions Patient Instructions None needed. Anesthesia/Patient Condition Patient is doing well, no complaints, stable vital signs, no apparent adverse anesthesia problems. No complications reported per nursing. JOEY MOYA DO Apr 04, 2023 13:27
== END 2023-04-04 11:45 | disposition home or self-care (01) | DRG 787 ==
LOC: LDRP 19:01
PROVIDERS: ADMIT Obstetrics & Gynecology; ATTEND Obstetrics & Gynecology
PROC: 10D00Z1 Extraction of Products of Conception, Low, Open Approach (ICD-10-PCS; principal; 2023-04-02 20:26)
DX: O48.0 Post-term pregnancy (principal); D62 Acute posthemorrhagic anemia; Z3A.40 40 weeks gestation of pregnancy; Z37.0 Single live birth; Z79.82 Long term (current) use of aspirin; Z79.890 Hormone replacement therapy; O90.81 Anemia of the puerperium; O62.0 Primary inadequate contractions
CPT/HCPCS: 36415; 81000; 85007; 85025; 85027; 86780; 86850; 86900; 86901; 94664